=== PATIENT | male | born 1975 | race Caucasian/White ===

== ENCOUNTER 2021-02-25 13:42 | Emergency (ER) | payer OTHER ==
[~2021-02-25] VITALS: Ht 165.1 cm; Wt 130.2 kg
[2021-02-25] MEDS ORDERED: HYDROXYZINE PAM50 MG PO (14:07)
[2021-02-25] MEDS ORDERED: ATIVAN2 MG PO (14:07)
[2021-02-25] MEDS ORDERED: BUSPAR30 MG PO (14:08)
[2021-02-25] MEDS ORDERED: DULOXETINE HCL60 MG PO (14:08)
[2021-02-25] MEDS ORDERED: LEXAPRO20 MG PO (14:08)
[2021-02-25] MEDS ORDERED: REVIA 50 MG TAB50 M1 PO (14:09)
[2021-02-25] MEDS ORDERED: BACLOFEN 10MG T10 MG PO (14:09)
[2021-02-25] MEDS ORDERED: LISINOPRIL20 MG PO (14:09)
[2021-02-25] MEDS ORDERED: GABAPENTIN600 M1 PO (14:10)
[2021-02-25] MEDS ORDERED: DESYREL150 MG PO (14:11)
[2021-02-25] MEDS ORDERED: MAGNESIUM OXID400 M1 PO (14:11)
[2021-02-25 14:25] LABS: ABSOLUTE NEUTROPHILS 5.6 thou/uL (1.4-8.2); BASOPHILS 0.4 % (0.0-2.0); EOSINOPHILS 1.2 % (0.0-3.0); HEMATOCRIT 43.4 % (42.0-52.0); HEMOGLOBIN 14.9 gm/dL (14.0-18.0); LYMPHOCYTES 26.1 % (24.0-44.0); MCH 32.8 pg (26.0-34.0); MCHC 34.3 g/dL (28.0-37.0); MCV 95.8 fL (80.0-100.0); PLATELET COUNT 133 thou/uL (150-400); POLYS 66.3 % (36.0-66.0); RBC 4.53 mil/uL (4.50-6.00); RDW 15.9 % (10.5-14.5); WBC 8.4 thou/uL (4.0-11.0)
[2021-02-25 14:28] LABS: ANION GAP 7 mmol/L (7-16); BUN 14 mg/dL (7-18); CHLORIDE 103 mmol/L (98-107); CO2 27 mmol/L (21-32); GLUCOSE 142 mg/dL (74-106); POTASSIUM 4.5 mmol/L (3.5-5.1); SODIUM 137 mmol/L (136-145)
[2021-02-25 14:37] LABS: ALBUMIN 3.8 g/dL (3.4-5.0); SGOT 30 U/L (15-37); SGPT 44 U/L (16-63); TOTAL BILIRUBIN 0.7 mg/dL (0.2-1.0); TOTAL PROTEIN 7.4 g/dL (6.4-8.2)
[2021-02-25 16:22] VITALS: BP 135/84
--- NOTE | 2021-02-26 07:19 | EKG ---
[place] [address] [facility] [place] [address] ELECTROCARDIOGRAM REPORT Name: LENINALDO Room #: DEP [facility]Jose Angel#: [id number] Admission: 02/25/21 Attend Phys: Discharge: 02/25/21 Date of : 75 Report #: [id number] [facility] ED Test Date: 2021-02-25 Test Time: 13:49:52 Pat Name: NALDO FARRAR Department: Room: Gender: M Rn Cvicu: STAN : 1975 Requested By: Lacey Harvey Order Number: [id number] MD: Will Lopez Measurements Intervals [place] Rate: 107 P: 45 AR: 137 QRS: 55 QRSD: 103 T: 28 QT: 360 QTc: 481 Interpretive Statements Sinus tachycardia Artifact in lead(s) I,II,III,aVR,aVL,aVF No previous ECG available for comparison Electronically Signed On 02-26-2021 7:19:35 CDT by Will Lopez [email or web address] <ELECTRONICALLY SIGNED> By: Will Lopez MD, [facility] 02/26/21 0719 1349 1349 Will Lopez MD, FACC /EPI
== END 2021-02-25 16:30 | disposition home or self-care (01) ==
LOC: ER 13:42
PROVIDERS: Emergency Medicine
DX: F41.9 Anxiety disorder, unspecified (principal); F10.239 Alcohol dependence with withdrawal, unspecified; I10 Essential (primary) hypertension; Z79.899 Other long term (current) drug therapy